=== PATIENT | male | born 1995 | race Caucasian/White ===

== ENCOUNTER 2020-07-27 08:05 | Emergency (ER) | payer SELFPAY ==
[~2020-07-27] VITALS: Ht 165.1 cm; Wt 65.8 kg
[~2020-07-27 08:05] MED LIST: Benadryl 50 mg50 MG PO; CODACE30 PO; Epipen0.3 MG/0.3 IM; NAPR500 PO; Pepcid20 MG PO; Prednisone20 MG PO
[2020-07-27] MEDS ORDERED: KETO10 PO (10:25)
== END 2020-07-27 10:54 | disposition home or self-care (01) ==
LOC: ER 08:05
DX: S30.22XA Contusion of scrotum and testes, initial encounter (principal); Z91.030 Bee allergy status; W17.81XA Fall down embankment (hill), initial encounter
CPT/HCPCS: 73502; 76870; 99283-25

== ENCOUNTER 2024-11-23 11:18 | Emergency (ER) | payer SELFPAY ==
[~2024-11-23] VITALS: Ht 165.1 cm; Wt 68.0 kg
[~2024-11-23 11:18] MED LIST changes: +KETO10 PO
[2024-11-23 11:26] VITALS: BP 126/81
[2024-11-23] MEDS ORDERED: Ondansetron 4 MG SoluTab SL ONE (12:00)
[2024-11-23] MEDS ORDERED: AMOCLA875 PO (13:08)
== END 2024-11-23 13:35 | disposition home or self-care (01) ==
LOC: ER 11:18
DX: S61.412A Laceration without foreign body of left hand, initial encounter (principal); W29.3XXA Contact with powered garden and outdoor hand tools and machinery, initial encounter
CPT/HCPCS: 12001; 73130; 99283-25; A9270

== ENCOUNTER 2025-09-10 19:28 | Emergency (ER) | payer SELFPAY ==
[~2025-09-10] VITALS: Ht 165.1 cm; Wt 68.5 kg
[~2025-09-10 19:28] MED LIST changes: +AMOCLA875 PO
[2025-09-10 19:49] VITALS: BP 125/67
[2025-09-10] MEDS ORDERED: PSEUDOEPHEDRINE30 M1 PO (21:23)
[2025-09-10] MEDS ORDERED: AMOCLA875 PO (21:23)
== END 2025-09-10 21:33 | disposition home or self-care (01) ==
LOC: ER 19:28
DX: H65.92 Unspecified nonsuppurative otitis media, left ear (principal); Z91.030 Bee allergy status
CPT/HCPCS: 99282; A9270